=== PATIENT | female | born 1960 | race Caucasian/White ===

== ENCOUNTER 2017-07-06 13:49 | Emergency (ER) | payer BC ==
[~2017-07-06] VITALS: Ht 162.6 cm; Wt 82.0 kg
[~2017-07-06 13:49] MED LIST: AMBI5TAB PO; CLOP75 PO; HYPERTENSION MED; RANI75TA8 PO; VITA100L PO
[2017-07-06 14:03] VITALS: BP 135/95; PULSE 102; RESP 20; TEMP 98.3; O2SAT 94
[2017-07-06] MEDS ORDERED: FURO40TA PO (16:06)
[2017-07-06] MEDS ORDERED: TRIA37.53 PO (16:06)
[2017-07-06] MEDS ORDERED: PLAV75TA29 PO (16:06)
[2017-07-06] MEDS ORDERED: ASPI-516 CHEW (16:06)
[2017-07-06] MEDS ORDERED: AMLO5TAB2 PO (16:06)
[2017-07-06] MEDS ORDERED: SIMV20TA PO (16:06)
[2017-07-06] MEDS ORDERED: PRED-503 PO (16:23)
[2017-07-06] MEDS ORDERED: NORC5TAB PO (16:23)
--- NOTE | 2017-07-06 16:23 | PD ---
HPI Chief Complaint: Musculoskeletal Complaint Time Seen by Provider: 16:05 Travel History International Travel<30 days: No Contact w/Intl Traveler<30days: No Traveled to known affect area: No History of Present Illness HPI 56-year-old female presents to the emergency department with complaint of pain to the posterior aspect of her right shoulder and tricep area that radiates down her right arm that started last night. Denies injury. Reports occasional paresthesias in her right hand, but denies this time. Denies loss of sensation , decreased range of motion, decreased strength to the affected extremity. Reports decreased range of motion secondary to pain only. Denies fever, vomiting. Rates pain 7/10. Worse with movement. Better at rest. Describes as a stabbing sensation. Has tried taking ibuprofen, Flexeril, using heating pad for symptom management. No known relieving factors. Primary care provider is Dr. Tran. No known allergies. Takes Plavix for history of stents in her iliac and factor V bleeding disorder. Denies history of DVT/PE. History of hypertension. Has no other medical complaints. No other modifying factors or associated signs and symptoms. PFSH Past Medical History Cardiovascular Problems: No High Cholesterol: Yes Diminished Hearing: No Hypertension: Yes Tetanus Vaccination: < 5 Years ?: Not Past Surgical History Other Surgery: Yes (ILIAC STENTS X 2) Social History Alcohol Use: No (OCCASION) Tobacco Use: Yes (1/2 PPD) Substance Use: No Allergies-Medications (Allergen,Severity, Reaction): Coded Allergies: No Known Allergies (Verified Adverse Reaction, Unknown, 07/06/17) Reported Meds & Prescriptions Reported Meds & Active Scripts Active Donnellson (Hydrocodone-Acetaminophen) 5 Mg-325 Mg Tab 1 Tab PO Q4H PRN Deltasone (Prednisone) 20 Mg Tab 40 Mg PO DAILY 4 Days start 07/07/2017 Reported Amlodipine (Amlodipine Besylate) 5 Mg Tab 5 Mg PO DAILY Aspirin 81 Mg Chew 81 Mg CHEW DAILY Simvastatin 20 Mg Tab 20 Mg PO DAILY Furosemide 40 Mg Tab 40 Mg PO DAILY Triamterene-Hydrochlorothiazide 37.5-25 Mg Cap 1 Cap PO DAILY Plavix (Clopidogrel Bisulfate) 75 Mg Tab 75 Mg PO DAILY Review of Systems Except as stated in HPI: all other systems reviewed are Neg Physical Exam Narrative GENERAL: Well-nourished, well-developed female patient, in no acute distress SKIN: Warm and dry. HEAD: Atraumatic. Normocephalic. EYES: Pupils equal and round. No scleral icterus. No injection or drainage. ENT: Mucosa pink and moist. Airway patent. NECK: Supple. Trachea midline. CARDIOVASCULAR: Regular rate. RESPIRATORY: No accessory muscle use. GASTROINTESTINAL: Flat. MUSCULOSKELETAL: No obvious deformities. No clubbing. No cyanosis. No edema. Right shoulder with full range of motion; greater than 90 abduction; right shoulder with no obvious deformities; with tenderness on palpation to the posterior aspect and to the posterior axillary area; with full range of motion and strength; skin to the area of concern is without erythema, edema; no palpable lumps or lymphadenopathy to the right axilla. 5/5 strength. Right upper extremity is supple nontender with 2+ radial pulse and sensory intact without erythema or edema. NEUROLOGICAL: Awake and alert. Oriented 3. No obvious cranial nerve deficits. Motor grossly within normal limits. Normal speech. PSYCHIATRIC: Appropriate mood and affect; insight and judgment normal. Data Data Last Documented VS Vital Signs Date Time Temp Pulse Resp B/P (MAP) Pulse Ox O2 Delivery O2 Flow Rate FiO2 07/06/17 14:03 98.3 102 20 135/95 (108) 94 Orders Orders Acetamin-Hydrocod 325-5 Mg (Donnellson 5-325 (07/06/17 16:30) Prednisone (Deltasone) (07/06/17 16:30) Ed Discharge Order (07/06/17 16:24) [facility] Medical Decision Making Medical Screen Exam Complete: Yes Emergency Medical Condition: Yes Medical Record Reviewed: Yes Differential Diagnosis Radicular pain, nerve compression, shoulder strain, less likely DVT, fracture Narrative Course 56-year-old female physical exam and HPI consistent with radicular pain of the right shoulder. I discussed patient with Dr. Doshi, my attending physician, and she agrees with my plan of care. Donnellson, Deltasone administered in the ER. Donnellson, Deltasone prescribed for home. Instructed patient to follow up with primary care provider. Patient verbalizes understanding and agreement with treatment plan. Patient is medically cleared and stable for discharge. Discussed reasons to return to the emergency department. Patient agrees with treatment plan. The patients vital signs are stable and the patient is stable for outpatient follow-up and treatment. Patient discharged home, stable and in no acute distress. Diagnosis Primary Impression: Radicular pain of shoulder Referrals: Primary Care Physician Patient Instructions: General Instructions, Shoulder Pain (ED) Additional Instructions: Tylenol or ibuprofen as needed and as directed to reduce pain and inflammation Rest, ice, and compress extremity to decrease pain and inflammation Avoid aggravating activity; increase activity as tolerated Follow-up with primary care provider Follow-up with orthopedics as needed Return to the emergency department immediately with worsening symptoms Med/Other Pt SpecificInfo: Prescription(s) given Scripts Hydrocodone-Acetaminophen (Donnellson) 5 Mg-325 Mg Tab 1 TAB PO Q4H Y for PAIN, #8 TAB 0 Refills Prov: Nereida Avelar 07/06/17 Prednisone (Deltasone) 20 Mg Tab 40 MG PO DAILY for 4 Days, #8 TAB 0 Refills start 07/07/2017 Prov: Nereida Avelar 07/06/17 Disposition: 01 DISCHARGE HOME Condition: Stable Nereida Avelar Jul 06, 2017 16:23
[2017-07-06] MEDS ORDERED: predniSONE 20 MG TAB PO ONE (16:30)
[2017-07-06] MEDS ORDERED: ACETAMINOPHEN/HYDROcodone 325 MG/5 MG TAB PO ONE (16:30)
== END 2017-07-06 16:46 | disposition home or self-care (01) ==
LOC: NEPD 13:49
DX: M25.511 Pain in right shoulder (principal); E78.00 Pure hypercholesterolemia, unspecified; I10 Essential (primary) hypertension; F17.200 Nicotine dependence, unspecified, uncomplicated; Z79.02 Long term (current) use of antithrombotics/antiplatelets; Z79.82 Long term (current) use of aspirin; Z79.899 Other long term (current) drug therapy
CPT/HCPCS: 99283; J7512